=== PATIENT | female | born 1960 | race African-American/Black ===

== ENCOUNTER → 2020-06-19 | Day surgery (SDC) | payer OTHER ==
--- OUTSIDE RECORDS SUMMARY | 2020-06-19 10:04 | XMS ---
:1960 [facility] Support Name Relationship Address Phone IN [employer]OU[employer] Unavailable NA [phone] [place] [address] SHEILA LEHMAN DAUGHTER [address] [place] [address] Re-disclosure Warning The records that you are about to access may contain information from federally- assisted alcohol or drug abuse programs. If such information is present, then the following federally mandated warning applies: This information has been disclosed to you from records protected by federal confidentiality rules (42 CFR part 2). The federal rules prohibit you from making any further disclosure of this information unless further disclosure is expressly permitted by the written consent of the person to whom it pertains or as otherwise permitted by 42 CFR part 2. A general authorization for the release of medical or other information is NOT sufficient for this purpose. The Federal rules restrict any use of the information to criminally investigate or prosecute any alcohol or drug abuse patient.The records that you are about to access may contain highly sensitive health information, the redisclosure of which is protected by Article 27-F of the [facility] Public Health law. If you continue you may haveaccess to information: Regarding HIV / AIDS; Provided by facilities licensed or operated by the [facility] Office of Mental Health; or Provided by the [facility] Office for People With Developmental Disabilities. If such information is present, then the following [facility] mandated warning applies: This information has been disclosed to you from confidential records which are protected by state law. State law prohibits you from making any further disclosure of this information without the specific written consent of the person to whom it pertains, or as otherwise permitted by law. Any unauthorized further disclosure in violation of state law may result in a fine or nursing home sentence or both. A general authorization for the release of medical or other information is NOT sufficient authorization for further disclosure. Insurance Providers Payer name Policy type Policy ID Covered Covered constitution party's Policy P julianna / Coverage constitution party ID relationship to [employer] type [facility] LOCAL [id number] [facility]
--- NOTE | 2020-06-19 11:52 | OP ---
DATE OF OPERATION: 06/19/2020 PREOPERATIVE DIAGNOSIS: Abnormal left mammography. POSTOPERATIVE DIAGNOSIS: Abnormal left mammography. PROCEDURE: Left stereotactic needle biopsy with clip. SURGEON: Casi West MD ANESTHESIA: Local. COMPLICATIONS: None. DISPOSITION: Stable. This is a sterile procedure. INDICATION FOR PROCEDURE: Patient has been followed for left retroareolar calcifications which I felt were slowly increasing in numbers. Therefore, my recommendation was a needle biopsy. The procedure was discussed with her including the need for clip . PROCEDURE IN DETAIL: Patient brought to [facility], laid prone on the [place] table. Using the lateral approach, the calcifications in the upper outer retro areola of the left breast were identified. A sterile prep was obtained. A target was chosen. There was a positive stroke margin. Using Betadine 1% lidocaine a 9-gauge Suros device was used to take several cores from this area. Cores showed calcifications within them. These were handled using calcification protocol. A clip was deployed in the area. Hemostasis assured with direct pressure. The incision was closed with Steri-Strips. She tolerated procedure well and left the breast imaging center in good condition. CASI WEST M.D. [id number]
--- NOTE | 2020-06-20 16:46 | PATH ---
Surgical Pathology Report Patient Name: STEPHEN TURNER [facility]. Rec. #: [id number] /Age/Gender: 1960 (Age: 60) / F Account: [id number] Location: [facility] Taken: 06/19/2020 Received: 06/19/2020 Reported: 06/20/2020 Physicians: Casi Cabezas M.D. Specimen(s) Received A: LEFT BREAST SPECIMEN WITH CALCIFICATIONS B: LEFT BREAST SPECIMEN WITHOUT CALCIFICATIONS Clinical History Nonpalpable lesion, left retroareolar upper outer quadrant calcification Mammographic findings: Microcalcification, suspicious Final Diagnosis A. LEFT BREAST SPECIMEN WITH CALCIFICATION, STEREOTACTIC BIOPSY: BENIGN BREAST TISSUE WITH PROLIFERATIVE FIBROCYSTIC CHANGES INCLUDING ADENOSIS, APOCRINE METAPLASIA, CHRONIC INFLAMMATION, STROMAL FIBROSIS, AND ASSOCIATED CALCIFICATIONS. B. LEFT BREAST SPECIMEN WITHOUT CALCIFICATIONS, STEREOTACTIC BIOPSY: BENIGN BREAST TISSUE WITH PROLIFERATIVE FIBROCYSTIC CHANGES INCLUDING SCLEROSING ADENOSIS, MILD USUAL DUCTAL HYPERPLASIA (UDH), APOCRINE METAPLASIA, CHRONIC INFLAMMATION, STROMAL FIBROSIS, AND ASSOCIATED CALCIFICATIONS. Electronically Signed Tonia Wan M.D. Gross Description A. Received in formalin labeled "left breast with calcifications," are 5 rooney-yellow, cylindrical portions of fibroadipose tissue ranging from 1.5-2.2 cm in length and averaging 0.3 cm in diameter. The specimens are submitted in toto in one cassette. B. Received in formalin labeled "left breast without calcifications," are 3 rooney-yellow, cylindrical portions of fibroadipose tissue ranging from 1.8-2.2 cm in length and averaging 0.2 cm in diameter. The specimens are submitted in toto in one cassette. Time to formalin fixation: 5 minutes Total formalin fixation time: Approximately 7 hours. /06/19/2020 saudi/06/19/2020
== END | disposition home or self-care (01) ==
LOC: FMAMMOTONE 10:00
PROVIDERS: ATTEND Surgery
PROC: 0HBU3ZX Excision of Left Breast, Percutaneous Approach, Diagnostic (ICD-10-PCS; principal; 2020-06-19)
DX: N60.22 Fibroadenosis of left breast (principal); N60.32 Fibrosclerosis of left breast; N64.89 Other specified disorders of breast; R92.8 Other abnormal and inconclusive findings on diagnostic imaging of breast
CPT/HCPCS: 19081; 76098-TC-FY; 88305-TC